=== PATIENT | female | born 1985 | race Caucasian/White ===

== ENCOUNTER 2018-08-11 09:47 | Inpatient (IN) | payer OTHER ==
[~2018-08-11] VITALS: Ht 167.6 cm; Wt 47.9 kg
[2018-08-11] VITALS (31 sets, daily range): BP systolic 99–156; BP diastolic 42–99
[2018-08-11] MEDS ORDERED: ONDANSETRON HCL 4MG/2ML INJ IV STA (10:01)
[2018-08-11] MEDS ORDERED: SODIUM CHLORIDE 0.9% 1,000 ML IV ONE (10:01)
[2018-08-11] MEDS ORDERED: MORPHINE SULFATE 4 MG/ML CPJ (NOT FOR IM USE) IV STA (10:01)
[2018-08-11] MEDS ORDERED: LEVETIRACETAM 500MG PREMIX 100 ML IV ONE (10:15)
[2018-08-11 10:48] LABS: CHLORIDE 103 mEq/L (98-107)
[2018-08-11 10:51] LABS: INR 1.1; PARTIAL THROMBOPLASTIN TIME 24.3 sec (23.4-31.0)
[2018-08-11 10:54] LABS: BASOPHILS % 0.7 % (0.0-2.0); EOSINOPHILS % 0.9 % (0.0-5.0); HEMATOCRIT. 36.2 % (36.0-48.0); HEMOGLOBIN. 12.1 g/dL (12.0-16.0); LYMPHOCYTES % 20.3 % (20.0-50.0); MEAN CORPUSCULAR HEMOGLOBIN 34.3 pg (28.0-32.0); MEAN CORPUSCULAR VOLUME 102.8 fL (81.0-99.0); MEAN PLATELET VOLUME 7.8 fl (7.4-10.4); MONOCYTES % 4.5 % (2.0-8.0); NEUTROPHILS % 73.6 % (40.0-76.0); PLATELET 149 x1000/uL (130-400); RED BLOOD CELL COUNT 3.52 mill/uL (4.2-5.4); RED CELL DISTRIBUTION WIDTH 14.1 % (11.6-14.6)
[2018-08-11 10:56] LABS: HCG SCREEN NEGATIVE
[2018-08-11 10:57] LABS: ETHANOL BLOOD < 10 mg/dL
[2018-08-11 11:42] LABS: CLARITY URINE CLEAR (CLEAR); COLOR URINE YELLOW (YELLOW); KETONES URINE TRACE (NEGATIVE); LEUKOCYTE ESTERASE URINE NEGATIVE (NEGATIVE); NITRITE URINE NEGATIVE (NEGATIVE); OCCULT BLOOD URINE 1+ (NEGATIVE); PH URINE 5.5 (4.5-8.0); PROTEIN URINE 2+ (NEGATIVE)
[2018-08-11 12:18] LABS: *AMPHETAMINES SCREEN URINE NEGATIVE (NEGATIVE); *BARBITURATES SCREEN URINE NEGATIVE (NEGATIVE)
[2018-08-11 12:20] LABS: *BENZODIAZEPINES SCREEN URINE NEGATIVE (NEGATIVE); *COCAINE SCREEN URINE NEGATIVE (NEGATIVE); METHADONE URINE SCREEN NEGATIVE (NEGATIVE); PHENCYCLIDINE URINE SCREEN NEGATIVE (NEGATIVE)
[2018-08-11 12:21] LABS: CANNABINOID URINE SCREEN NEGATIVE (NEGATIVE)
[2018-08-11] MEDS: MORPHINE SULFATE 4 MG/ML CPJ (NOT FOR IM USE) IV PRN ×6 (12:21→22:46)
[2018-08-11 12:27] LABS: OPIATES URINE SCREEN PRESUMTIVE POSITIVE (NEGATIVE)
[2018-08-11] MEDS ORDERED: MORPHINE SULFATE 4 MG/ML CPJ (NOT FOR IM USE) IV ONE (13:45)
[2018-08-11] MEDS ORDERED: MAGNESIUM 2 G PREMIX 50 ML IV ONE (13:45)
[2018-08-11] MEDS ORDERED: ONDANSETRON HCL 4MG/2ML INJ IV ONE (13:45)
[2018-08-11] MEDS ORDERED: ONDANSETRON HCL 4MG/2ML INJ IV PRN (14:00)
[2018-08-11] MEDS ORDERED: NICARDIPINE 100 MG in SODIUM CHLORIDE 0.9% 60 ML IV PRN ×2 (15:00→15:15)
[2018-08-11] MEDS ORDERED: IPRATROPIUM/ALBUTEROL 0.5-3(2.5)MG/3ML NEB HHN PRN (15:45)
[2018-08-11 16:42] LABS: HEPATITIS B SURFACE ANTIGEN NEGATIVE
[2018-08-11] MEDS ORDERED: LEVETIRACETAM 500MG PREMIX 100 ML IV SCH (17:00)
[2018-08-11 17:11] LABS: HEPATITIS A AB IGM NEGATIVE (NEGATIVE)
[2018-08-11] MEDS: DEXT 5%/LACTATED RINGERS 1,000 ML IV SCH (17:15)
[2018-08-11] MEDS: DEXAMETHASONE 4MG/ML 1ML VIAL IV SCH ×2 (17:16→22:46)
[2018-08-11] MEDS ORDERED: MAGNESIUM 2 G PREMIX 50 ML IV NR (18:00)
[2018-08-11] MEDS: LEVETIRACETAM 500MG in SODIUM CHLORIDE 0.9% 100ML IV SCH (21:24)
[2018-08-12] VITALS (18 sets, daily range): BP systolic 104–150; BP diastolic 39–119
[2018-08-12] MEDS: MORPHINE SULFATE 4 MG/ML CPJ (NOT FOR IM USE) IV PRN ×5 (02:38→15:47)
[2018-08-12 04:45] LABS: BASOPHILS % 0.1 % (0.0-2.0); HEMATOCRIT. 39.2 % (36.0-48.0); HEMOGLOBIN. 13.2 g/dL (12.0-16.0); LYMPHOCYTES % 7.1 % (20.0-50.0); MEAN CORPUSCULAR HEMOGLOBIN 34.6 pg (28.0-32.0); MEAN CORPUSCULAR VOLUME 102.3 fL (81.0-99.0); MEAN PLATELET VOLUME 8.1 fl (7.4-10.4); MONOCYTES % 3.2 % (2.0-8.0); NEUTROPHILS % 89.6 % (40.0-76.0); PLATELET 139 x1000/uL (130-400); RED BLOOD CELL COUNT 3.83 mill/uL (4.2-5.4); RED CELL DISTRIBUTION WIDTH 13.6 % (11.6-14.6)
[2018-08-12 04:57] LABS: CHLORIDE 96 mEq/L (98-107)
[2018-08-12] MEDS: DEXAMETHASONE 4MG/ML 1ML VIAL IV SCH ×2 (05:49→11:30)
[2018-08-12] MEDS: DEXT 5%/LACTATED RINGERS 1,000 ML IV SCH (08:28)
[2018-08-12] MEDS ORDERED: HYDROCODONE/ACETAMINOPHEN 5/325MG TABLET PO PRN (08:45)
[2018-08-12] MEDS: LEVETIRACETAM 500MG in SODIUM CHLORIDE 0.9% 100ML IV SCH (09:06)
[2018-08-12] MEDS: HYDROCODONE/ACETAMINOPHEN 5/325MG TABLET PO PRN ×2 (11:29→15:51)
== END 2018-08-12 16:27 | disposition left against medical advice (07) | DRG 44 ==
LOC: ER 09:47 → MICUSO 11:33 → EDBEDREQ 11:42 → EDBEDREQSVC 11:42 → ENRESERV 14:00
PROVIDERS: ADMIT Internal Medicine; ATTEND Internal Medicine
DX: I61.9 Nontraumatic intracerebral hemorrhage, unspecified (principal); S22.079A Unspecified fracture of T9-T10 vertebra, initial encounter for closed fracture; I95.9 Hypotension, unspecified; E83.42 Hypomagnesemia; G40.409 Other generalized epilepsy and epileptic syndromes, not intractable, without status epilepticus; G90.8 Other disorders of autonomic nervous system; R74.0 Nonspecific elevation of levels of transaminase and lactic acid dehydrogenase [LDH]; I62.00 Nontraumatic subdural hemorrhage, unspecified; W18.30XA Fall on same level, unspecified, initial encounter; Y93.E1 Activity, personal bathing and showering; Z82.0 Family history of epilepsy and other diseases of the nervous system; Z91.81 History of falling; Y92.89 Other specified places as the place of occurrence of the external cause; Y99.8 Other external cause status
CPT/HCPCS: 36415; 71045; 72070; 72146; 76700; 80048; 80061; 80305; 83735; 83880; 84443; 84484; 84703; 86705; 86709; 86803; 86850; 86900; 87340; 93005; 96374; 96375; 99291; J1100; J1953; J2270; J2405; J3475; J7030; J7050; J7070; L0172

== ENCOUNTER 2023-02-24 04:29 | Emergency (ER) | payer OTHER ==
[~2023-02-24] VITALS: Ht 165.1 cm; Wt 64.0 kg
[2023-02-24 04:32] VITALS: O2SAT 99
[2023-02-24 04:59] VITALS: BP 101/71; PULSE 89; RESP 16; TEMP 98.5
== END 2023-02-24 05:45 | disposition left against medical advice (07) ==
LOC: ER 04:29
DX: Z53.21 Procedure and treatment not carried out due to patient leaving prior to being seen by health care provider (principal)
CPT/HCPCS: 99281

== ENCOUNTER 2023-02-26 09:48 | Emergency (ER) | payer OTHER, MEDICAID ==
[~2023-02-26] VITALS: Ht 167.6 cm; Wt 50.0 kg
[2023-02-26 09:56] VITALS: BP 109/78; PULSE 90; RESP 18; TEMP 98.2; O2SAT 99
[2023-02-26] MEDS ORDERED: MAGNESIUM/ALUMINUM HYDROXIDE/SIMETHICONE 30ML UDC PO ONE (12:45)
== END 2023-02-26 12:58 | disposition left against medical advice (07) ==
LOC: ER 09:48
DX: R10.9 Unspecified abdominal pain (principal)
CPT/HCPCS: 99283

== ENCOUNTER 2023-03-04 17:57 | Emergency (ER) | payer MEDICAID, OTHER ==
[~2023-03-04] VITALS: Ht 167.6 cm; Wt 50.0 kg
[2023-03-04 18:09] VITALS: BP 98/59; PULSE 96; RESP 18; TEMP 98.6; O2SAT 100
== END 2023-03-04 20:07 | disposition left against medical advice (07) ==
LOC: ER 17:57
DX: R10.9 Unspecified abdominal pain (principal); Z53.21 Procedure and treatment not carried out due to patient leaving prior to being seen by health care provider
CPT/HCPCS: 99283

== ENCOUNTER 2023-03-08 20:09 | Emergency (ER) | payer MEDICAID ==
[~2023-03-08] VITALS: Ht 162.6 cm; Wt 55.0 kg
[2023-03-08 20:11] VITALS: BP 100/70; PULSE 81; RESP 16; TEMP 98; O2SAT 98
== END 2023-03-08 21:03 | disposition left against medical advice (07) ==
LOC: ER 20:28
DX: Z53.21 Procedure and treatment not carried out due to patient leaving prior to being seen by health care provider (principal)
CPT/HCPCS: 99281